=== PATIENT | female | born 1980 | race Caucasian/White ===

== ENCOUNTER 2018-04-07 12:21 | Emergency (ER) | payer OTHER ==
[~2018-04-07] VITALS: Ht 157.5 cm; Wt 72.6 kg
[~2018-04-07 12:21] MED LIST: BACTRIM DS 8001 TAB PO; FLEXERIL10 MG PO
--- NOTE | 2018-04-07 12:33 | ED GI/GU/ABDOMINAL COMPLAINT ---
History of Present Illness General Chief Complaint: Female Urogenital Problems Stated Complaint: BACK PAIN, UTI Source: patient Exam Limitations: no limitations Vital Signs & Intake/Output Vital Signs & Intake/Output Vital Signs Date Time Temp Pulse Resp B/P B/P Pulse O2 O2 Flow FiO2 Mean Ox Delivery Rate 04/07 1508 Room Air 04/07 1508 104 132/72 98 Room Air 04/07 1230 96.3 118 20 137/79 97 Room Air Allergies Coded Allergies: NO KNOWN ALLERGIES (NONE 04/07/18) Reconcile Medications Ciprofloxacin HCl (Cipro) 500 MG TABLET 1 TAB PO BID UTI/PYELO CYCLOBENZAPRINE HCL (Flexeril) 10 MG TAB 1 TAB PO TID PRN MUSCLE RELAXATION Hydrocodone/Acetaminophen (Hydrocodon-Acetaminophen 5-325) 5 MG-325 MG TABLET 1-2 TAB PO Q4-6 PRN PRN PAIN Sulfamethoxazole/Trimethopri (Bactrim Ds 800 MG-160 MG) 1 TAB TAB 1 TAB PO BID UTI Triage Note: PT TO ED C/O CONTINUED S/S OF UTI. PT WAS ON BACTRIM FOR 5 DAYS, FINISHED ALL ABX. STATES SHE HAS B/L FLANK PAIN AND BLOOD IN URINE. PT SAW UROLOGY LAST WEEK, WAS TOLD SHE NEEDS U/S. Triage Nurses Notes Reviewed? yes ? n Is pt currently ? No Onset: Abrupt Duration: week(s):, intermittent Timing: recent history Location: right flank Radiation: no radiation HPI: 37-year-old female with a history of frequent urinary tract infections and finished Bactrim about 5 days ago comes in with right flank pain and increased frequency with urination. Patient reports that initially she had increased frequency with urination and dysuria. She does not have any flank pain at that time. She finished antibiotics. She started with flank pain a few days ago. She had some intermittent vomiting in the beginning of the infection but no recent vomiting. Denies any fever chills. Some mild lower cramping at times in her abdomen but denies any pain currently. (Brenden Holland) Past History Travel History Traveled to [place] past 21 day No Medical History Any Pertinent Medical History? see below for history Neurological: NONE EENT: NONE Cardiovascular: NONE Respiratory: NONE Gastrointestinal: NONE Hepatic: NONE Renal: UTI'S Musculoskeletal: NONE Psychiatric: NONE Endocrine: NONE Blood Disorders: NONE Cancer(s): NONE TUBE WRAPPER/Reproductive: NONE Surgical History Surgical History: non-contributory Psychosocial History What is your primary language Kinyarwanda Tobacco Use: Quit <30 days ago ETOH Use: occasional use Illicit Drug Use: denies illicit drug use Family History Hx Contributory? No (Brenden Holland) Review of Systems Review of Systems Constitutional: Reports: no symptoms. EENTM: Reports: no symptoms. Respiratory: Reports: no symptoms. Cardiovascular: Reports: no symptoms. GI: Reports: no symptoms. Genitourinary: Reports: see HPI. Musculoskeletal: Reports: see HPI. Skin: Reports: no symptoms. Neurological/Psychological: Reports: no symptoms. Hematologic/Endocrine: Reports: no symptoms. Immunologic/Allergic: Reports: no symptoms. All Other Systems: Reviewed and Negative (Brenden Holland) Physical Exam Physical Exam General Appearance: well developed/nourished, no apparent distress, alert, awake Head: atraumatic, normal appearance Eyes: Bilateral: normal appearance. Ears, Nose, Throat, Mouth: hearing grossly normal, moist mucous membrane Neck: normal inspection Respiratory: normal breath sounds, no respiratory distress Cardiovascular: regular rate/rhythm Gastrointestinal: soft, non-tender, No right lower quadrant pain, negative McBurney's point,, negative murphys Back: normal inspection Extremities: normal range of motion Neurologic/Psych: awake, alert, oriented x 3 Skin: intact Core Measures ACS in differential dx? No Sepsis Present: No Sepsis Focused Exam Completed? No (Brenden Holland) Progress Differential Diagnosis: appendicitis, cholecystitis, kidney stone, ovarian cyst, ovarian torsion, UTI/pyelo, muscle strain, Plan of Care: Orders Procedure Date/time Status CULTURE,URINE 04/07 1233 Active URINE 04/07 1233 Complete URINALYSIS 04/07 1233 Complete COMPREHENSIVE METABOLIC PANEL 04/07 1233 Complete CBC WITHOUT DIFFERENTIAL 04/07 1233 Complete Laboratory Tests 04/07/18 1255: Anion Gap 9, Estimated GFR > 60, BUN/Creatinine Ratio 18.6, Glucose 131 H, Calcium 9.2, Total Bilirubin 0.7, AST 18, ALT 21, Alkaline Phosphatase 51, Total Protein 7.1, Albumin 4.3, Globulin 2.8, Albumin/Globulin Ratio 1.5, CBC w Diff NO MAN DIFF REQ, RBC 4.55, MCV 91.5, MCH 30.8, MCHC 33.6, RDW 12.6, MPV 7.5, Gran % 58.2, Lymphocytes % 35.0, Monocytes % 5.4, Eosinophils % 1.4, Basophils % 0, Absolute Granulocytes 3.5, Absolute Lymphocytes 2.1, Absolute Monocytes 0.3, Absolute Eosinophils 0.1, Absolute Basophils 0 04/07/18 1241: Urinalysis LIGHT H, Urine Color YEL, Urine Clarity HAZY H, Urine pH 6.0, Ur Specific Walton 1.020, Urine Protein NEG, Urine Ketones NEG, Urine Nitrite NEG, Urine Bilirubin NEG, Urine Urobilinogen 0.2, Ur Leukocyte Esterase NEG, Ur Microscopic SEDIMENT EXAMINED, Urine RBC 3-5, Urine WBC 1-3 H, Ur Epithelial Cells MOD H, Urine Bacteria FEW H, Urine Mucus MOD H, Urine Hemoglobin TRACE- INTACT, Urine Glucose NEG, Urine Test NEGATIVE Microbiology 04/07 1241 URINE ROUT: Urine Culture - RECD Diagnostic Imaging: Viewed by Me: Ultrasound. Discussed w/RAD: Ultrasound. Radiology Impression: PATIENT: HANK PEARSON PRESENT AGE: 37 PATIENT ACCOUNT NO: [id number] : 82 LOCATION: [facility] ORDERING PHYSICIAN: Brenden JONES SERVICE DATE: 04/07/18 EXAM TYPE : US - US-RENAL/KIDNEY EXAMINATION: US RETROPERITONEAL COMPLETE (RENAL) CLINICAL INFORMATION: Right flank pain, recent UTI. COMPARISON: None TECHNIQUE: Real-time imaging of the kidneys and bladder. FINDINGS: RIGHT KIDNEY: 10.1 x 5.1 x 5.3 cm (SAG x AP x TRV). The kidney is normal in size, contour, and echogenicity. Renal cortical thickness is normal. No calculi or focal parenchymal lesions. No hydronephrosis. LEFT KIDNEY: There is limited evaluation of the left kidney secondary to overlying bowel gas. 10.9 x 6.0 x 3.9 cm (SAG x AP x TRV). The kidney is normal in size, contour, and echogenicity. Renal cortical thickness is normal. No calculi or focal parenchymal lesions. No hydronephrosis. BLADDER: Well-distended and normal. Bilateral ureteral jets are not demonstrated. Prevoid bladder volume is 27.6 mL. Postvoid bladder volume is 0.9 mL. IMPRESSION: No obstruction. Both kidneys appear within normal limits. There is limited evaluation of the left kidney. The bladder also appears within normal limits. No significant post void residual volume.. DICTATED BY: La Ramos MD DATE/TIME DICTATED:04/07/181412 [employer]BR[employer] ARTIST:KARELY DATE/TIME TRANSCRIBED:1412 CONFIDENTIAL, DO NOT COPY WITHOUT APPROPRIATE AUTHORIZATION. < Electronically signed in Other Vendor System> SIGNED BY: La Ramos MD 1419 Initial ED EKG: none (Brenden Holland) Departure Departure Disposition: HOME OR SELF CARE Condition: Stable Clinical Impression Primary Impression: Right flank pain Referrals: Patient Has No Primary Care Dr (PCP/Family) Additional Instructions: Take ciprofloxacin as prescribed. Take Vicodin as needed for pain. Follow-up with PCP. Return if any other concerns worsening symptoms. Please go over all results of today's visit with your primary care doctor. Contact your primary care doctor to let them know you were here in the emergency room. There may be nonspecific findings which may not be related to your visit today here in the emergency room but may require further evaluation and chronic monitoring by your primary care doctor. If you had a laceration today the chance of foreign body always remains. You should follow-up with your primary care doctor for recheck in 3-5 days for a wound check. If you had an x-ray done there is a chance that a fracture could have been missed on initial read and you should follow-up with your primary care doctor for repeat x-rays if symptoms persist. If your blood pressure was elevated here in the emergency room please have rechecked by [facility] primary care doctor within the next 48. If you were prescribed a narcotic here in the emergency room or any type of controlled substances you're not allowed to drive while taking this medication or operate any type of heavy machinery. Narcotics can make you feel lightheaded dizziness nausea and can cause constipation. You may need to grain picker a stool softener. Thank you for choosing [facility] emergency room. Please return to the emergency room immediately if you have any other concerns worsening of symptoms. Departure Forms: Customer Survey General Discharge Information Prescriptions: Current Visit Scripts Ciprofloxacin HCl (Cipro) 1 TAB PO BID #14 TAB Hydrocodone/Acetaminophen (Hydrocodon-Acetaminophen 5-325) 1-2 TAB PO Q4-6 PRN PRN PAIN #10 TAB Comments 04/07/2018 3:43:20 PM Patient clinically looks well. Patient is no apparent distress. Nontoxic- appearing. No evidence of pyelonephritis currently but due to the fact the patient was still symptomatic she was switched to ciprofloxacin and a repeat urine culture was sent. She was told that if the urine culture comes back negative in 2 days she should discontinue taking the ciprofloxacin. She has no right upper quadrant pain. Low suspicion for any type of cholelithiasis but discussed the possibility. She has no right lower quadrant abdominal pain. No suspicion for appendicitis. She had no pain on the abdominal exam at all. No rashes. At this time I feel patient is stable for discharge. Blood work within normal limits. She is to follow-up with urologist this week. (Stephan JONES,Brenden) PA/BOLOGNA MAKER Co-Sign Statement Statement: ED Attending supervision documentation- [] I saw and evaluated the patient. I have also reviewed all the pertinent lab results and diagnostic results. I agree with the findings and the plan of care as documented in the PA's/BOLOGNA MAKER's documentation. [X] I have reviewed the ED Record and agree with the PA's/BOLOGNA MAKER's documentation. [] Additions or exceptions (if any) to the PAs/BOLOGNA MAKER's note and plan are summarized below: [] (Garry CAMPOS,Harley Beckham)
[2018-04-07 13:05] LABS: ABSOLUTE BASOPHIL COUNT 0 /CUMM (0.0-0.2); ABSOLUTE EOSINOPHIL COUNT 0.1 /CUMM (0.0-0.7); ABSOLUTE GRANULOCYTE CT 3.5 /CUMM (1.4-6.5); ABSOLUTE LYMPH COUNT 2.1 /CUMM (1.2-3.4); ABSOLUTE MONOCYTE COUNT 0.3 /CUMM (0.10-0.60); BASOPHIL % 0 % (0.0-2.0); EOSINOPHIL % 1.4 % (0-5); GRANULOCYTE % 58.2 % (42.2-75.2); HEMATOCRIT 41.6 % (37-47); MEAN CORPUSCULAR HGB 30.8 PG (27.0-31.0); MEAN CORPUSCULAR HGB CONC 33.6 G/DL (33.0-37.0); MEAN CORPUSCULAR VOLUME 91.5 FL (81.0-99.0); MEAN PLATELET VOLUME 7.5 FL (7.4-10.4); PLATELET COUNT 279 /CUMM (130-400); RBC DISTRIBUTION WIDTH 12.6 % (11.5-14.5); RED BLOOD CELL CT 4.55 /CUMM (4.20-5.40)
--- NOTE | 2018-04-07 14:20 | ULTRASOUND REPORT ---
EXAMINATION: US RETROPERITONEAL COMPLETE (RENAL) CLINICAL INFORMATION: Right flank pain, recent UTI. COMPARISON: None TECHNIQUE: Real-time imaging of the kidneys and bladder. FINDINGS: RIGHT KIDNEY: 10.1 x 5.1 x 5.3 cm (SAG x AP x TRV). The kidney is normal in size, contour, and echogenicity. Renal cortical thickness is normal. No calculi or focal parenchymal lesions. No hydronephrosis. LEFT KIDNEY: There is limited evaluation of the left kidney secondary to overlying bowel gas. 10.9 x 6.0 x 3.9 cm (SAG x AP x TRV). The kidney is normal in size, contour, and echogenicity. Renal cortical thickness is normal. No calculi or focal parenchymal lesions. No hydronephrosis. BLADDER: Well-distended and normal. Bilateral ureteral jets are not demonstrated. Prevoid bladder volume is 27.6 mL. Postvoid bladder volume is 0.9 mL. IMPRESSION: No obstruction. Both kidneys appear within normal limits. There is limited evaluation of the left kidney. The bladder also appears within normal limits. No significant post void residual volume..
[2018-04-07] MEDS ORDERED: CIPRO500 M1 PO (14:53)
[2018-04-07] MEDS ORDERED: HYDROCODON-ACE1 EAC2 PO (14:53)
[2018-04-07 15:08] VITALS: BP 132/72
== END 2018-04-07 15:09 ==
LOC: ERH 12:21
PROVIDERS: Physician Assistant Medical
DX: R10.31 Right lower quadrant pain (principal)
CPT/HCPCS: 76775; 81001; 81025; 87086; 96372; J1885